=== PATIENT | male | born 1990 | race Caucasian/White ===

== ENCOUNTER 2017-01-21 18:09 | Emergency (ER) | payer MEDICAID ==
[2017-01-21] MEDS ORDERED: Sodium Chloride 0.9% 1,000 ML IV ONE ×2 (18:13→19:19)
[2017-01-21] MEDS ORDERED: LORazepam 2 MG/ML MDV IVPUSH STA ×2 (18:17→18:20)
[2017-01-21 19:10] LABS: ACETAMINOPHEN < 10 ug/mL (10-30)
[2017-01-21] MEDS ORDERED: LORazepam 2 MG/ML MDV IV PRN (19:23)
[2017-01-21] MEDS ORDERED: Sodium Chloride 0.9% 10 ML Syringe FLUSH PRN (19:23)
--- NOTE | 2017-01-21 19:34 | EDM.PDOC ---
ED HPI ALTERED MENTAL STATUS - General Chief Complaint: Drug or Alcohol Abuse Stated Complaint: ATE BAD SALT Time Seen by Provider: 01/21/17 18:09 Source: Reports: Patient, Family History Limitations: Reports: Altered mental status, Combative/threatening - History of Present Illness INITIAL COMMENTS - FREE TEXT/NARRATIVE: 26 years old mahesh bey came to the ed with his friend after he was snoring and injecting "Bad Salt" yesterday. Pt was extremely agitated on arrival going from room to room. Unable to give hpt. Girlfrient arrived later stating pt has H/O anxiety, took drugs multiple times in the past, smokes daily, dose not drink ETOH. Poison Control was called. Baseline Mental Status: Reports: alert/confused, agitated Symptom Onset Date: 01/20/17 Symptom Onset Time: 01:00 Timing/Duration: Reports: Hour(s):, Day(s):, Getting worse Context: Reports: drug/ETOH abuse, found by family Associated Symptoms: Reports: previous similar episodes - Related Data Allergies/ADRs: Allergies codeine Allergy (Severe, Verified 04/26/16 15:05) Stomach Upset Home Meds: Home Meds Diazepam [Valium Intensol 5 mg/mL] 5 mg PO QID PRN #4 syringe 02/12/16 [Rx] Cephalexin [Keflex] 500 mg PO Q6HR #30 cap 04/26/16 [Rx] Past Medical History - Past Health History Medical/Surgical History: Denies Medical/Surgical History HEENT History: Reports: None Cardiovascular History: Reports: Hypertension Gastrointestinal History: Reports: None Genitourinary History: Reports: None Musculoskeletal History: Reports: Back pain, chronic Neurological History: Reports: Concussion, Migraines Psychiatric History: Reports: Anxiety, Panic attack, PTSD Endocrine/Metabolic History: Reports: None Hematologic History: Reports: None Immunologic History: Reports: None Oncologic (Cancer) History: Reports: None Dermatologic History: Reports: None - Past Surgical History Head Surgeries/Procedures: Reports: Other (see below) HEENT Surgical History: Reports: Oral surgery Social & Family History - Tobacco Use Smoking Status *Q: Current Every Day Smoker Years of Tobacco use: 18 Packs/Tins Daily: 1 Used Tobacco, but Quit: No Second Hand Smoke Exposure: Yes - Caffeine Use Caffeine Use: Reports: Coffee, Energy drinks Other Caffeine Use: daily - Alcohol Use Days Per Week of Alcohol Use: 1 Number of Drinks Per Day: 6 Total Drinks Per Week: 6 - Recreational Drug Use Recreational Drug Use: Yes Drug Use in Last 12 Months: Yes Recreational Drug Type: Reports: Marijuana/Hashish, Methamphetamine Recreational Drug Use Frequency: Weekly Recreational Drug Last Use: YESTERDAY ED ROS GENERAL - Review of Systems Review Of Systems: Unable To Obtain - Physical Exam Exam: See Below Exam Limited By: Other (agitated) General Appearance: alert, anxious, moderate distress, thin Eye Exam: bilateral eye: normal inspection Ears: normal external exam, normal canal Nose: normal inspection, normal mucosa Throat/Mouth: Normal inspection Head Exam: atraumatic Neck: normal inspection Respiratory/Chest: no respiratory distress, lungs clear Cardiovascular: normal peripheral pulses, regular rate, rhythm GI/Abdominal: normal bowel sounds (Male) Exam: Deferred Rectal (Males) Exam: Deferred Neuro Exam (Abbreviated): alert, confused, disoriented Back Exam: normal inspection, full range of motion Extremities: normal inspection, normal range of motion, non-tender, no pedal edema Psychiatric: anxious Skin Exam: Diaphoretic, Erythema EKG INTERPRETATION EKG Date: 01/21/17 Time: 19:30 Rate (beats/min): 82 [place]: normal P-wave: present QRS: normal ST-T: normal QT: normal Comparison: NA - no prior EKG Course - Vital Signs Text/Narrative:: 26 years old w sotero came to the ed with his friend after he was snoring and injecting "Bad Salt" yesterday. Pt was extremely agitated on arrival going from room to room. Unable to give hpt. Girlfrient arrived later stating pt has H/O anxiety, took drugs multiple times in the past, smokes daily, dose not drink ETOH. Poison Control was called. PE: Extremely agitated with dystonic reactions, temp was 98.4 Poison control was called: "lots of benzos" keep temp down, may go into Sz, Ice packs, may have to be intubated, use Ketamine and propofol for intubation. Labs: CBC nl potassium was 3.3 UDS pos fro Aphetamines and Benzos (Ativan was given in the ed after the UA collection) Tx: NA. Ativan, NG tube, Ice packs, montanez cath. Reexam: Pt became hyperthermic, agitated with minor stimulation Procedure: Intubation due to agitation, poor airway control, poor gag. Done by Anesthesia PA as per Hospital Bylaws. Consultation: Dr. Walker, [employer]: accepted pt for further care at the ICU Plan: Transfer to [facility] ICU by EMS ground, intubated because no personal is available to monitor the propofol drip in our ICU Last Recorded V/S: Last Vital Signs Temp 36.3 C 01/21/17 20:39 Pulse 92 01/21/17 20:39 Resp 16 01/21/17 20:39 BP 140/71 01/21/17 20:39 Pulse Ox 92 L 01/21/17 20:39 - Orders/Labs/Meds Orders: Active Orders 24 hr Category Date Time Status EKG Documentation Completion [RC] ASDIRECTED Care 01/21/17 18:57 Active Seizure Precautions [OM.PC] Routine Oth 01/21/17 19:22 Ordered EKG 12 Lead [EK] Routine Ther 01/21/17 18:56 Ordered Medication Orders Sodium Chloride (Normal Saline) 1,000 mls @ 125 mls/hr IV ASDIRECTED JASWINDER Last Admin: 01/21/17 20:29 Dose: 125 mls/hr Lorazepam (Ativan) 1 mg IV Q6H PRN PRN Reason: Nausea/Vomiting Sodium Chloride (Saline Flush) 10 ml FLUSH ASDIRECTED PRN PRN Reason: Keep Vein Open Labs: Laboratory Tests 01/21/17 01/21/17 01/21/17 Range/Units 18:30 18:30 18:30 WBC (4.5-12.0) X10-3/uL RBC (4.30-5.75) x10(6)uL Hgb (11.5-15.5) g/dL Hct (30.0-51.3) % MCV (80-96) fL MCH (27.7-33.6) pg MCHC (32.2-35.4) g/dL RDW (11.5-15.5) % Plt Count (125-369) X10(3)uL MPV (7.4-10.4) fL Neut % (Auto) (46-82) % Lymph % (Auto) (13-37) % [place] % (Auto) (4-12) % Eos % (Auto) (1.0-5.0) % Baso % (Auto) (0-2) % Neut # (Auto) (1.6-8.3) # Lymph # (Auto) (0.6-5.0) # [place] # (Auto) (0.0-1.3) # Eos # (Auto) (0.0-0.8) # Baso # (Auto) (0.0-0.2) # Sodium (135-145) mmol/L Potassium (3.5-5.3) mmol/L Chloride (100-110) mmol/L Carbon Dioxide (23-29) mmol/L BUN (5-20) mg/dL Creatinine (0.6-1.3) mg/dL Est Cr Clr Drug Dosing Estimated GFR (MDRD) (>60) BUN/Creatinine Ratio (9-20) Glucose (80-116) mg/dL Calcium (8.6-10.2) mg/dL Total Bilirubin 0.6 (0.1-1.3) mg/dL Direct Bilirubin 0.1 (0.1-0.2) mg/dL AST 30 H D (5-27) IU/L ALT 47 H D (14-26) IU/L Alkaline Phosphatase 46 L (56-112) IU/L Creatine Kinase (60-160) IU/L Troponin I (0.02-0.06) NG/ML Total Protein 6.8 (6.0-8.0) g/dL Albumin 4.2 (3.5-5.2) g/dL Amylase 34 (28-100) U/L TSH, Ultra Sensitive 0.67 (0.4-5.5) nlU/mL Salicylates < 4.0 L (5.0-25.0) mg/dL Acetaminophen < 10 L (10-30) ug/mL Ethyl Alcohol < 0.01 (<0.01) % 01/21/17 01/21/17 01/21/17 Range/Units 18:30 18:30 18:30 WBC 9.1 (4.5-12.0) X10-3/uL RBC 4.43 (4.30-5.75) x10(6)uL Hgb 13.4 (11.5-15.5) g/dL Hct 40.2 (30.0-51.3) % MCV 90.8 (80-96) fL MCH 30.3 (27.7-33.6) pg MCHC 33.4 (32.2-35.4) g/dL RDW 11.8 (11.5-15.5) % Plt Count 229 (125-369) X10(3)uL MPV 8.4 (7.4-10.4) fL Neut % (Auto) 71.8 (46-82) % Lymph % (Auto) 18.5 (13-37) % [place] % (Auto) 8.2 (4-12) % Eos % (Auto) 1 (1.0-5.0) % Baso % (Auto) 1 (0-2) % Neut # (Auto) 6.5 (1.6-8.3) # Lymph # (Auto) 1.7 (0.6-5.0) # [place] # (Auto) 0.7 (0.0-1.3) # Eos # (Auto) 0.1 (0.0-0.8) # Baso # (Auto) 0.1 (0.0-0.2) # Sodium 136 (135-145) mmol/L Potassium 3.3 L (3.5-5.3) mmol/L Chloride 103 (100-110) mmol/L Carbon Dioxide 24 (23-29) mmol/L BUN 9 (5-20) mg/dL Creatinine 0.9 (0.6-1.3) mg/dL Est Cr Clr Drug Dosing TNP Estimated GFR (MDRD) > 60 (>60) BUN/Creatinine Ratio 10.0 (9-20) Glucose 95 (80-116) mg/dL Calcium 8.8 (8.6-10.2) mg/dL Total Bilirubin (0.1-1.3) mg/dL Direct Bilirubin (0.1-0.2) mg/dL AST (5-27) IU/L ALT (14-26) IU/L Alkaline Phosphatase (56-112) IU/L Creatine Kinase 471 H* (60-160) IU/L Troponin I (0.02-0.06) NG/ML Total Protein (6.0-8.0) g/dL Albumin (3.5-5.2) g/dL Amylase (28-100) U/L TSH, Ultra Sensitive (0.4-5.5) nlU/mL Salicylates (5.0-25.0) mg/dL Acetaminophen (10-30) ug/mL Ethyl Alcohol (<0.01) % 01/21/17 Range/Units 18:30 WBC (4.5-12.0) X10-3/uL RBC (4.30-5.75) x10(6)uL Hgb (11.5-15.5) g/dL Hct (30.0-51.3) % MCV (80-96) fL MCH (27.7-33.6) pg MCHC (32.2-35.4) g/dL RDW (11.5-15.5) % Plt Count (125-369) X10(3)uL MPV (7.4-10.4) fL Neut % (Auto) (46-82) % Lymph % (Auto) (13-37) % [place] % (Auto) (4-12) % Eos % (Auto) (1.0-5.0) % Baso % (Auto) (0-2) % Neut # (Auto) (1.6-8.3) # Lymph # (Auto) (0.6-5.0) # [place] # (Auto) (0.0-1.3) # Eos # (Auto) (0.0-0.8) # Baso # (Auto) (0.0-0.2) # Sodium (135-145) mmol/L Potassium (3.5-5.3) mmol/L Chloride (100-110) mmol/L Carbon Dioxide (23-29) mmol/L BUN (5-20) mg/dL Creatinine (0.6-1.3) mg/dL Est Cr Clr Drug Dosing Estimated GFR (MDRD) (>60) BUN/Creatinine Ratio (9-20) Glucose (80-116) mg/dL Calcium (8.6-10.2) mg/dL Total Bilirubin (0.1-1.3) mg/dL Direct Bilirubin (0.1-0.2) mg/dL AST (5-27) IU/L ALT (14-26) IU/L Alkaline Phosphatase (56-112) IU/L Creatine Kinase (60-160) IU/L Troponin I < 0.01 L (0.02-0.06) NG/ML Total Protein (6.0-8.0) g/dL Albumin (3.5-5.2) g/dL Amylase (28-100) U/L TSH, Ultra Sensitive (0.4-5.5) nlU/mL Salicylates (5.0-25.0) mg/dL Acetaminophen (10-30) ug/mL Ethyl Alcohol (<0.01) % Meds: Medications Generic Name Dose Route Start Last Admin Trade Name Freq PRN Reason Stop Dose Admin Sodium Chloride 1,000 mls @ 125 mls/hr 01/21/17 20:30 01/21/17 20:29 Normal Saline IV 125 mls/hr ASDIRECTED JASWINDER Administration Lorazepam 1 mg 01/21/17 19:23 Ativan IV Q6H PRN Nausea/Vomiting Sodium Chloride 10 ml 01/21/17 19:23 Saline Flush FLUSH ASDIRECTED PRN Keep Vein Open Discontinued Medications Generic Name Dose Route Start Last Admin Trade Name Freq PRN Reason Stop Dose Admin Sodium Chloride 1,000 mls @ 999 mls/hr 01/21/17 18:13 01/21/17 18:10 Normal Saline IV 01/21/17 19:13 999 mls/hr .BOLUS ONE Administration Sodium Chloride 1,000 mls @ 999 mls/hr 01/21/17 19:19 01/21/17 19:23 Normal Saline IV 01/21/17 20:19 999 mls/hr .BOLUS ONE Administration Lidocaine HCl 5 ml 01/21/17 20:31 Xylocaine 2% Jelly MUCMEM 01/21/17 20:32 ONETIME ONE Lorazepam 2 mg 01/21/17 18:17 01/21/17 19:23 Ativan IVPUSH 01/21/17 18:18 Not Given BEDTIME STA Lorazepam 2 mg 01/21/17 18:20 01/21/17 18:25 Ativan IVPUSH 01/21/17 18:21 2 mg ONETIME STA Administration Departure - Departure Time of Disposition: 22:05 Disposition: DC/Tfer to [facility] Condition: fair Clinical Impression: Amphetamine abuse, Hypokalemia, Agitation - My Orders Last 24 Hours: My Active Orders 01/21/17 18:56 EKG 12 Lead [EK] Routine 01/21/17 18:57 EKG Documentation Completion [RC] ASDIRECTED 01/21/17 19:22 Seizure Precautions [OM.PC] Routine - Assessment/Plan Last 24 Hours: My Active Orders 01/21/17 18:56 EKG 12 Lead [EK] Routine 01/21/17 18:57 EKG Documentation Completion [RC] ASDIRECTED 01/21/17 19:22 Seizure Precautions [OM.PC] Routine
[2017-01-21] MEDS ORDERED: Propofol 200 MG/20 ML SDV IV ONE (20:30)
[2017-01-21] MEDS ORDERED: Succinylcholine/Normal Saline 200 MG/10 ML Syringe IV ONE (20:30)
[2017-01-21] MEDS ORDERED: Propofol 1,000 MG/100 ML SDV IV ONE (20:30)
[2017-01-21] MEDS ORDERED: Rocuronium 50 MG/5 ML Vial IV ONE (20:30)
[2017-01-21] MEDS ORDERED: Sodium Chloride 0.9% 1,000 ML IV SCH (20:30)
[2017-01-21] MEDS ORDERED: Lidocaine 2% Jelly 5 ML Urojet MUCMEM ONE (20:31)
[2017-01-21 20:40] VITALS: BP 140/71
--- NOTE | 2017-01-23 09:18 | CR ---
INDICATION: Vomiting, nasogastric intubation placement. CHEST: Two frontal views of the chest were obtained 01/21/2017 and compared with 09/02/2016, with the upper abdomen on the second view more prominently. Endotracheal tube is noted in adequate position. Nasogastric tube is noted with its tip in the gastric fundus. It could be advanced approximately 10 cm for better positioning. A definite active infiltrate or effusion was not identified, although parenchymal changes are difficult to exclude behind the heart in the left lower lobe. Overlying EKG leads are noted. The heart is normal in size and shape. IMPRESSION: 1. Endotracheal tube appears to be in adequate position. 2. Nasogastric tube could be advanced 10 cm for better positioning. MTDD
== END 2017-01-21 21:55 ==
LOC: FB.ED 18:09 → UNDOADMIN 19:23 → FB.ICU 19:23 → FB.ED 21:55
PROC: 0BH17EZ Insertion of Endotracheal Airway into Trachea, Via Natural or Artificial Opening (ICD-10-PCS; principal; 2017-01-21)
DX: F15.10 Other stimulant abuse, uncomplicated (principal); E87.6 Hypokalemia; R45.1 Restlessness and agitation; Z88.8 Allergy status to other drugs, medicaments and biological substances; Z79.899 Other long term (current) drug therapy; I10 Essential (primary) hypertension; F41.9 Anxiety disorder, unspecified
CPT/HCPCS: 31500; 36415; 43752; 51702; 71010; 80048; 80076; 80305; 82150; 82550; 84443; 84484; 85025; 93005; 96361; 96365; 96375; 99285; G0480; J2060; J2704; J7040; 96374; J3490